=== PATIENT | female | born 1985 | race Caucasian/White ===

== ENCOUNTER 2016-08-11 08:16 | Emergency (ER) | payer BC ==
[2016-08-11 09:36] VITALS: BP 110/72
[2016-08-13 14:47] LABS: Ureaplasma Source URINE; Ureaplasma parvum PCR Negative; Ureaplasma urealyticum PCR Negative
--- NOTE | 2016-09-13 15:59 | UC ---
Complaint Female HPI - HPI Summary HPI Summary: 2 days of burning urgency and frequency, no vaginal discharge, no fevers, back pain or chills - History Of Current Complaint Chief Complaint: UCGU Stated Complaint: URINARY URGENCY,CRAMPS Time Seen by Provider: 08/11/16 10:55 Hx Obtained From: Patient Hx Last Menstrual Period: 2 weeks ago Onset/Duration: Gradual Onset, Lasting Days - 2, Still Present Timing: Constant Severity Initially: Mild Severity Currently: Mild Pain Intensity: 1 Pain Scale Used: 0-10 Numeric Character: Burning Aggravating Factor(s): Urination Alleviating Factor(s): Nothing Associated Signs And Symptoms: Positive: Negative - Allergies/Home Medications Allergies/Adverse Reactions: Allergies Allergy/AdvReac Type Severity Reaction Status Date / Time Penicillins Allergy Hives Verified 08/11/16 09:31 Home Medications: Home Medications Cyclosporine 1 tab PO BID 08/11/16 [History Confirmed 08/11/16] Fexofenadine (NF) [Meeta 180 (NF)] 1 tab PO DAILY 08/11/16 [History Confirmed 08/11/16] buPROPion TAB* [Wellbutrin TAB*] 200 mg PO DAILY 08/11/16 [History Confirmed ] hydrOXYzine HCL TAB* [Atarax TAB 50 MG *] 100 mg PO BID 08/11/16 [History Confirmed 08/11/16] PMH/Surg Hx/FS Hx/Imm Hx Previously Healthy: No Endocrine History Of: Denies: Diabetes, Thyroid Disease Cardiovascular History Of: Denies: Cardiac Disorders, Hypertension Respiratory History Of: Denies: COPD, Asthma GI/ History Of: Denies: Ulcer - Surgical History Surgical History: Yes Surgery Procedure, Year, and Place: Left hip arthroscopy torn labrum - Family History Known Family History: Positive: None Family History: no cardiovascular issues reported in family lineage - Social History Occupation: Employed Full-time Lives: With Family Alcohol Use: None Substance Use Type: None Smoking Status (MU): Never Smoked Tobacco - Immunization History Most Recent Influenza Vaccination: 2015/2016 season Review of Systems Constitutional: Negative Skin: Negative Eyes: Negative ENT: Negative Respiratory: Negative Cardiovascular: Negative Gastrointestinal: Negative Genitourinary: Dysuria, Frequency, Urgency Motor: Negative Neurovascular: Negative Musculoskeletal: Negative Neurological: Negative Psychological: Negative All Other Systems Reviewed And Are Negative: Yes Physical Exam Triage Information Reviewed: Yes Appearance: Well-Appearing, No Pain Distress, Well-Nourished Vital Signs: Initial Vital Signs Temp 98.8 F 08/11/16 09:27 Pulse 74 08/11/16 09:27 Resp 18 08/11/16 09:27 BP 110/72 08/11/16 09:27 Pulse Ox 100 08/11/16 09:27 Eye Exam: Normal Eyes: Positive: Conjunctiva Clear ENT Exam: Normal ENT: Positive: Normal ENT inspection, Hearing grossly normal. Negative: Nasal congestion, Nasal drainage, Trismus, Muffled/hoarse voice Dental Exam: Normal Neck exam: Normal Neck: Positive: Supple, Nontender Respiratory Exam: Normal Respiratory: Positive: Chest non-tender, No respiratory distress, No accessory muscle use Cardiovascular Exam: Normal Cardiovascular: Positive: RRR, Pulses Normal, Brisk Capillary Refill Abdominal Exam: Normal Abdomen Description: Positive: Nontender, No Organomegaly, Soft. Negative: CVA Tenderness (R), CVA Tenderness (L) Bowel Sounds: Positive: Present Musculoskeletal Exam: Normal Musculoskeletal: Positive: Strength Intact, ROM Intact Neurological Exam: Normal Neurological: Positive: Alert, Muscle Tone Normal Psychological Exam: Normal Skin Exam: Normal Diagnostics - Laboratory Diagnostic Studies Completed/Ordered: urine drip no evidence of urinary tract infection Complaint Female Dx - Course Course Of Treatment: increase fluids, may use pyridium prn 2-3 days, culture urine follow with pcp - Differential Dx/Diagnosis Differential Diagnosis/HQI/PQRI: Pelvic Inflammatory Disease, Renal Colic, Sexually Transmitted Disease, Urinary Tract Infection Provider Diagnoses: Dysuria Discharge - Discharge Plan Condition: Stable Disposition: HOME Patient Education Materials: Phenazopyridine (By mouth), Dysuria (ED) Referrals: [facility] [Outside] - 2 Weeks No Primary Care Phys,NOPCP [Primary Care Provider] -
== END 2016-08-11 11:08 | disposition home or self-care (01) ==
LOC: UCEAST 08:16
DX: R30.0 Dysuria (principal); Z88.0 Allergy status to penicillin
CPT/HCPCS: 81003; 87086; 87491; 87591; 87798; 99212; G0463

== ENCOUNTER 2017-08-14 08:20 | Emergency (ER) | payer BC ==
[2017-08-14 08:57] VITALS: BP 113/80
--- NOTE | 2017-08-14 09:06 | UC ---
Complaint Female HPI - HPI Summary HPI Summary: started 3 days ago with urinary frequency, started to drink more fluids but got worse yesterday an dnow has burning urination, frequency and sees blood in urine. no back or abd pain - History Of Current Complaint Chief Complaint: UCGU Stated Complaint: BLOOD IN URINE Time Seen by Provider: 08/14/17 08:44 Hx Obtained From: Patient Hx Last Menstrual Period: iud ?: No Onset/Duration: Gradual Onset Severity Initially: Mild Severity Currently: Moderate Pain Intensity: 5 Character: Dull, Burning Aggravating Factor(s): Urination Alleviating Factor(s): Nothing Associated Signs And Symptoms: Negative: Back Pain, Vaginal Bleeding/Discharge, Nausea - Allergies/Home Medications Allergies/Adverse Reactions: Allergies Allergy/AdvReac Type Severity Reaction Status Date / Time Penicillins Allergy Hives Verified 08/14/17 08:32 PMH/Surg Hx/FS Hx/Imm Hx Previously Healthy: Yes Psychological History: Depression - Surgical History Surgical History: Yes Surgery Procedure, Year, and Place: Left hip arthroscopy torn labrum - Family History Known Family History: Positive: None - Social History Occupation: Employed Full-time Lives: With Family Alcohol Use: None Substance Use Type: None Smoking Status (MU): Never Smoked Tobacco - Immunization History Most Recent Influenza Vaccination: 2015/2016 season Review of Systems Constitutional: Negative Respiratory: Negative Cardiovascular: Negative Gastrointestinal: Negative Genitourinary: Dysuria, Hematuria, Frequency, Urgency Neurological: Negative Psychological: Negative All Other Systems Reviewed And Are Negative: Yes Physical Exam Triage Information Reviewed: Yes Appearance: Well-Appearing, No Pain Distress, Well-Nourished Vital Signs: Initial Vital Signs Temp 97.3 F 08/14/17 08:24 Pulse 75 08/14/17 08:24 Resp 15 08/14/17 08:24 BP 113/80 08/14/17 08:24 Pulse Ox 99 08/14/17 08:24 Vital Signs Reviewed: Yes Respiratory Exam: Normal Respiratory: Positive: Lungs clear Cardiovascular Exam: Normal Abdominal Exam: Normal Abdomen Description: Positive: Nontender, No Organomegaly, Soft. Negative: CVA Tenderness (R), CVA Tenderness (L) Bowel Sounds: Positive: Present Neurological Exam: Normal Neurological: Positive: Alert Psychological Exam: Normal Skin Exam: Normal Complaint Female Dx - Differential Dx/Diagnosis Differential Diagnosis/HQI/PQRI: , Ureteral Stone, Urinary Tract Infection Provider Diagnoses: UTI Discharge - Sign-Out/Discharge Documenting (check all that apply): Discharge/Admit/Transfer - Discharge Plan Condition: Good Disposition: HOME Prescriptions: Sulfamethox/Trimethoprim DS* [Bactrim DS 800/160 TAB*] 1 tab PO BID #14 tab Referrals: Ada Izaguirre MD [Primary Care Provider] - 3 Days (for recheck ) Additional Instructions: drink plenty of water start Bactrim antibiotic as prescribed return if you experience fever >101, back pain or worsening symptoms - Billing Disposition and Condition Condition: GOOD Disposition: HOME
== END 2017-08-14 09:15 | disposition home or self-care (01) ==
LOC: UCEAST 08:20
DX: N39.0 Urinary tract infection, site not specified (principal); B96.20 Unspecified Escherichia coli [E. coli] as the cause of diseases classified elsewhere; R31.9 Hematuria, unspecified; F32.9 Major depressive disorder, single episode, unspecified; Z88.0 Allergy status to penicillin
CPT/HCPCS: 81003; 87077; 87086; 87186; 99212; G0463